=== PATIENT | male | born 1985 | race Caucasian/White ===

== ENCOUNTER 2016-09-14 23:55 | Emergency (ER) | payer SELFPAY ==
[~2016-09-14] VITALS: Ht 152.4 cm; Wt 55.0 kg
[2016-09-15 06:55] LABS: BASOPHILS % 0.7 % (0.0-2.0); EOSINOPHILS % 0.2 % (0.0-5.0); HEMATOCRIT. 40.8 % (42.0-52.0); LYMPHOCYTES % 25.7 % (20.0-50.0); MEAN CORPUSCULAR HEMOGLOBIN 30.1 pg (28.0-32.0); MEAN CORPUSCULAR VOLUME 88.1 fL (80.0-94.0); MEAN PLATELET VOLUME 8.4 fl (7.4-10.4); MONOCYTES % 5.8 % (2.0-8.0); NEUTROPHILS % 67.6 % (40.0-76.0); PLATELET 359 x1000/uL (130-400); RED BLOOD CELL COUNT 4.63 mill/uL (4.7-6.1); RED CELL DISTRIBUTION WIDTH 12.9 % (11.6-14.6)
[2016-09-15 07:08] LABS: CARBON DIOXIDE 23 mEq/L (21-32); CHLORIDE 101 mEq/L (98-107); ETHANOL BLOOD < 10 mg/dL
[2016-09-15 07:23] LABS: CLARITY URINE CLEAR (CLEAR); COLOR URINE YELLOW (YELLOW); GLUCOSE URINE 3+ (NEGATIVE); KETONES URINE 1+ (NEGATIVE); LEUKOCYTE ESTERASE URINE NEGATIVE (NEGATIVE); NITRITE URINE NEGATIVE (NEGATIVE); OCCULT BLOOD URINE NEGATIVE (NEGATIVE); PH URINE 6.5 (4.5-8.0); PROTEIN URINE NEGATIVE (NEGATIVE); SPECIFIC GRAVITY URINE 1.039 (1.005-1.030); UROBILINOGEN URINE 0.2 E.U./dL (0.2-1.0)
[2016-09-15 07:32] LABS: *AMPHETAMINES SCREEN URINE NEGATIVE (NEGATIVE); *BARBITURATES SCREEN URINE NEGATIVE (NEGATIVE); *BENZODIAZEPINES SCREEN URINE NEGATIVE (NEGATIVE); *COCAINE SCREEN URINE NEGATIVE (NEGATIVE); CANNABINOID URINE SCREEN NEGATIVE (NEGATIVE); METHADONE URINE SCREEN NEGATIVE (NEGATIVE); OPIATES URINE SCREEN NEGATIVE (NEGATIVE); PHENCYCLIDINE URINE SCREEN NEGATIVE (NEGATIVE)
[2016-09-15] MEDS ORDERED: SODIUM CHLORIDE 0.9% 1,000 ML IV ONE (08:00)
[2016-09-15] MEDS ORDERED: KETOROLAC 30MG/ML VIAL IV ONE (08:15)
[2016-09-15 12:20] VITALS: BP 126/69
== END 2016-09-15 12:59 | disposition home or self-care (01) ==
LOC: ER 23:55
DX: F22 Delusional disorders (principal); R10.9 Unspecified abdominal pain; K59.09 Other constipation
CPT/HCPCS: 36415; 80053; 80305; 80307; 80329; 81001; 85025; 96374; 99284; G0482; J1885; J7030; Z7610

== ENCOUNTER 2016-10-02 17:13 | Emergency (ER) | payer MEDICAID ==
[~2016-10-02] VITALS: Ht 152.4 cm; Wt 55.0 kg
[2016-10-02] MEDS ORDERED: IBUPROFEN 600MG TABLET PO ONE (21:45)
[2016-10-02 21:50] VITALS: BP 128/70
== END 2016-10-02 22:04 | disposition home or self-care (01) ==
LOC: ER 21:18
DX: M54.16 Radiculopathy, lumbar region (principal); E11.9 Type 2 diabetes mellitus without complications
CPT/HCPCS: 99283

== ENCOUNTER 2016-10-03 17:36 | Emergency (ER) | payer MEDICAID ==
[~2016-10-03] VITALS: Ht 162.6 cm; Wt 65.0 kg
[2016-10-03] MEDS ORDERED: KETOROLAC 60MG/2ML VIAL IM ONE (22:45)
[2016-10-03 23:35] LABS: GLUCOSE URINE 3+ (NEGATIVE); KETONES URINE 1+ (NEGATIVE); LEUKOCYTE ESTERASE URINE NEGATIVE (NEGATIVE); NITRITE URINE NEGATIVE (NEGATIVE); OCCULT BLOOD URINE NEGATIVE (NEGATIVE); PROTEIN URINE NEGATIVE (NEGATIVE); SPECIFIC GRAVITY URINE 1.025 (1.005-1.030); UROBILINOGEN URINE 0.2 E.U./dL (0.2-1.0)
[2016-10-03 23:37] LABS: CLARITY URINE CLEAR (CLEAR); COLOR URINE YELLOW (YELLOW)
[2016-10-04 01:03] VITALS: BP 123/83
== END 2016-10-04 01:10 | disposition home or self-care (01) ==
LOC: ER 17:36
DX: M54.5 Low back pain (principal); E11.9 Type 2 diabetes mellitus without complications
CPT/HCPCS: 81001; 96372; 99283; J1885; Z7610

== ENCOUNTER 2016-10-10 21:33 | Emergency (ER) | payer MEDICAID ==
[~2016-10-10] VITALS: Ht 152.4 cm; Wt 54.5 kg
[2016-10-11] MEDS ORDERED: TETANUS, DIPHTHERIA, PERTUSSIS VAC/PF 0.5ML (>7YR OLD) IM ONE
[2016-10-11 00:08] VITALS: BP 125/60
== END 2016-10-11 00:22 | disposition home or self-care (01) ==
LOC: ER 21:33
DX: S01.541A Puncture wound with foreign body of lip, initial encounter (principal); K13.0 Diseases of lips; S61.442A Puncture wound with foreign body of left hand, initial encounter; L03.114 Cellulitis of left upper limb; S61.441A Puncture wound with foreign body of right hand, initial encounter; L03.113 Cellulitis of right upper limb; X58.XXXA Exposure to other specified factors, initial encounter; Y93.89 Activity, other specified; Y92.89 Other specified places as the place of occurrence of the external cause; E11.9 Type 2 diabetes mellitus without complications; Z23 Encounter for immunization
CPT/HCPCS: 90471; 90715; 99283; Z7610

== ENCOUNTER 2017-04-27 04:18 | Emergency (ER) | payer MEDICAID ==
[~2017-04-27] VITALS: Ht 152.4 cm; Wt 54.0 kg
[2017-04-27 08:03] LABS: BASOPHILS % 0.6 % (0.0-2.0); EOSINOPHILS % 0.5 % (0.0-5.0); HEMATOCRIT. 43.9 % (42.0-52.0); HEMOGLOBIN. 14.8 g/dL (14.0-18.0); LYMPHOCYTES % 29.9 % (20.0-50.0); MEAN CORPUSCULAR HEMOGLOBIN 30.2 pg (28.0-32.0); MEAN CORPUSCULAR VOLUME 89.7 fL (80.0-94.0); MONOCYTES % 7.2 % (2.0-8.0); NEUTROPHILS % 61.8 % (40.0-76.0); PLATELET 415 x1000/uL (130-400); RED CELL DISTRIBUTION WIDTH 13.5 % (11.6-14.6)
[2017-04-27 08:14] LABS: CHLORIDE 102 mEq/L (98-107); ETHANOL BLOOD < 10 mg/dL
[2017-04-27 08:33] VITALS: BP 130/81
[2017-04-27 08:34] LABS: CLARITY URINE CLEAR (CLEAR); COLOR URINE YELLOW (YELLOW); KETONES URINE 4+ (NEGATIVE); LEUKOCYTE ESTERASE URINE NEGATIVE (NEGATIVE); NITRITE URINE NEGATIVE (NEGATIVE); OCCULT BLOOD URINE NEGATIVE (NEGATIVE); PROTEIN URINE 1+ (NEGATIVE); SPECIFIC GRAVITY URINE 1.046 (1.005-1.030); UROBILINOGEN URINE 0.2 E.U./dL (0.2-1.0)
[2017-04-27 09:05] LABS: *BARBITURATES SCREEN URINE NEGATIVE (NEGATIVE); *BENZODIAZEPINES SCREEN URINE NEGATIVE (NEGATIVE); *COCAINE SCREEN URINE NEGATIVE (NEGATIVE); CANNABINOID URINE SCREEN NEGATIVE (NEGATIVE); METHADONE URINE SCREEN NEGATIVE (NEGATIVE); OPIATES URINE SCREEN NEGATIVE (NEGATIVE); PHENCYCLIDINE URINE SCREEN NEGATIVE (NEGATIVE)
[2017-04-27 09:06] LABS: *AMPHETAMINES SCREEN URINE NEGATIVE (NEGATIVE)
== END 2017-04-27 09:27 | disposition left against medical advice (07) ==
LOC: ER 04:18
DX: F41.9 Anxiety disorder, unspecified (principal); E11.9 Type 2 diabetes mellitus without complications; F22 Delusional disorders; E87.79 Other fluid overload
CPT/HCPCS: 36415; 80053; 80305; 80307; 80329; 81003; 85025; 99284; G0482

== ENCOUNTER 2017-04-28 20:51 | Emergency (ER) | payer MEDICAID ==
[~2017-04-28] VITALS: Ht 152.4 cm; Wt 56.0 kg
[2017-04-28 21:41] VITALS: BP 132/80
== END 2017-04-28 22:17 | disposition left against medical advice (07) ==
LOC: ER 21:41
DX: M79.1 Myalgia (principal); Z53.21 Procedure and treatment not carried out due to patient leaving prior to being seen by health care provider

== ENCOUNTER 2018-09-13 08:59 | Inpatient (IN) | payer MEDICAID ==
[~2018-09-13] VITALS: Ht 152.4 cm; Wt 54.4 kg
[2018-09-13 10:27] LABS: BASOPHILS % 0.3 % (0.0-2.0); HEMATOCRIT. 42.6 % (42.0-52.0); HEMOGLOBIN. 14.6 g/dL (14.0-18.0); LYMPHOCYTES % 7.3 % (20.0-50.0); MEAN CORPUSCULAR HEMOGLOBIN 30.6 pg (28.0-32.0); MEAN CORPUSCULAR VOLUME 89.1 fL (80.0-94.0); MEAN PLATELET VOLUME 8.8 fl (7.4-10.4); MONOCYTES % 7.2 % (2.0-8.0); NEUTROPHILS % 85.2 % (40.0-76.0); PLATELET 304 x1000/uL (130-400); RED BLOOD CELL COUNT 4.79 mill/uL (4.7-6.1); RED CELL DISTRIBUTION WIDTH 13.1 % (11.6-14.6)
[2018-09-13 10:34] LABS: CHLORIDE 99 mEq/L (98-107)
[2018-09-13 10:35] LABS: PROTHROMBIN TIME 10.3 sec (9.6-11.0)
[2018-09-13] MEDS ORDERED: KETOROLAC 30MG/ML VIAL IV ONE (11:45)
[2018-09-13 14:05] VITALS: BP 113/69
[2018-09-13] MEDS ORDERED: DEXT 5%/0.45% NACL 1000ML 1,000 ML IV SCH (14:25)
[2018-09-13] MEDS ORDERED: LORAZEPAM 2MG/ML CPJ IV PRN (14:30)
[2018-09-13] MEDS ORDERED: ONDANSETRON HCL 4MG/2ML INJ IV PRN (14:30)
[2018-09-13] MEDS ORDERED: KETOROLAC 15MG/ML VIAL IV PRN (14:30)
[2018-09-13] MEDS: MINERAL OIL ENEMA 133ML PR NR (14:30)
[2018-09-13] MEDS ORDERED: BISACODYL 10MG SUPP PR NR (14:30)
[2018-09-13] MEDS ORDERED: BISACODYL 10MG SUPP PR PRN (14:30)
[2018-09-13] MEDS ORDERED: IPRATROPIUM/ALBUTEROL 0.5-3(2.5)MG/3ML NEB INH PRN (14:30)
[2018-09-13] MEDS ORDERED: ACETAMINOPHEN 650MG SUPP PR PRN (14:30)
[2018-09-13] MEDS ORDERED: ACETAMINOPHEN 325MG TABLET PO PRN (14:30)
[2018-09-13] MEDS ORDERED: INSULIN LISPRO 100 UNITS/ML SUBCUT SCH (15:00)
[2018-09-13 16:00] VITALS: BP 106/62
[2018-09-13] MEDS ORDERED: DEXTROSE 50% WATER 50ML SYRINGE IV PRN (17:15)
[2018-09-13] MEDS: DEXT 5%/0.45% NACL 1000ML 1,000 ML IV SCH (17:48)
[2018-09-13] MEDS: INSULIN LISPRO 100 UNITS/ML SUBCUT SCH (17:56)
[2018-09-13] MEDS: BLOOD SUGAR DIAGNOSTIC STRIP TEST SCH (17:57)
[2018-09-13] MEDS ORDERED: MINERAL OIL ENEMA 133ML PR ONE (18:00)
[2018-09-13 20:00] VITALS: BP 121/71
[2018-09-14] MEDS: INSULIN LISPRO 100 UNITS/ML SUBCUT SCH
[2018-09-14] MEDS ORDERED: MINERAL OIL ENEMA 133ML PR NR (03:00)
[2018-09-14] MEDS: DEXT 5%/0.45% NACL 1000ML 1,000 ML IV SCH (03:18)
[2018-09-14] MEDS: MINERAL OIL ENEMA 133ML PR NR (03:21)
[2018-09-14 04:00] VITALS: BP 116/66
[2018-09-14] MEDS: BLOOD SUGAR DIAGNOSTIC STRIP TEST SCH ×2 (06:00)
[2018-09-14] MEDS ORDERED: PANTOPRAZOLE SODIUM 40 MG/VIAL IV SCH (09:00)
== END 2018-09-14 06:50 | disposition left against medical advice (07) | DRG 247 ==
LOC: ER 08:59 → 6WST 12:46 → ENRESERV 13:27
PROVIDERS: ADMIT Internal Medicine; ATTEND Internal Medicine
DX: K56.609 Unspecified intestinal obstruction, unspecified as to partial versus complete obstruction (principal); E11.65 Type 2 diabetes mellitus with hyperglycemia; E87.1 Hypo-osmolality and hyponatremia; K56.41 Fecal impaction; Z53.21 Procedure and treatment not carried out due to patient leaving prior to being seen by health care provider; Z79.4 Long term (current) use of insulin
CPT/HCPCS: 36415; 74176; 82962; 83036; 99285; J1885

== ENCOUNTER 2021-04-27 05:56 | Emergency (ER) | payer MEDICAID, OTHER ==
[~2021-04-27] VITALS: Ht 152.4 cm; Wt 55.0 kg
[2021-04-27 06:16] VITALS: BP 127/76
[2021-04-27 07:21] LABS: CLARITY URINE CLEAR (CLEAR); COLOR URINE YELLOW (YELLOW); KETONES URINE 2+ (NEGATIVE); LEUKOCYTE ESTERASE URINE NEGATIVE (NEGATIVE); NITRITE URINE NEGATIVE (NEGATIVE); OCCULT BLOOD URINE NEGATIVE (NEGATIVE); PH URINE 5.5 (4.5-8.0); PROTEIN URINE TRACE (NEGATIVE); SPECIFIC GRAVITY URINE 1.044 (1.005-1.030); UROBILINOGEN URINE 0.2 E.U./dL (0.2-1.0)
== END 2021-04-27 08:35 | disposition home or self-care (01) ==
LOC: ER 05:56
DX: R30.0 Dysuria (principal); E11.9 Type 2 diabetes mellitus without complications
CPT/HCPCS: 81003; 87086; 99283; Z7610